=== PATIENT | male | born 1950 | race Caucasian/White ===

== ENCOUNTER 2017-07-28 05:18 | Inpatient (IN) | payer OTHER ==
[2017-07-28] MEDS ORDERED: ceFAZolin 2 GM/SWFI 2 GM/20 ML SYR IVP ONE (06:00)
[2017-07-28] MEDS ORDERED: DEXAMETHASONE 4 MG/ML VIAL IVP ONE (06:00)
[2017-07-28] MEDS ORDERED: ROPIVACAINE 0.2% 80 MG, EPINEPHrine 0.2 MG, KETOROLAC TROMETHAMINE 30 MG in BAG 0 ML IU ONE (06:00)
[2017-07-28] MEDS ORDERED: FAMOTIDINE 20 MG TAB PO ONE (06:00)
[2017-07-28] MEDS ORDERED: ACETAMINOPHEN 325 MG TAB PO ONE (06:00)
[2017-07-28] MEDS ORDERED: LIDOCAINE 1% 2 ML INJ ONE (06:02)
[2017-07-28] MEDS ORDERED: LR 1,000 ML IV ONE (06:08)
[2017-07-28] MEDS ORDERED: LIDOCAINE 1% 2 ML INJ ID PRN (06:08)
[2017-07-28] MEDS ORDERED: PROPOFOL/EMULSION 500 MG/50 ML BOTTLE IV ONE ×2 (06:48→09:00)
[2017-07-28] MEDS ORDERED: fentaNYL 250 MCG/5 ML INJ ONE (06:48)
[2017-07-28] MEDS ORDERED: CALCIUM CHLORIDE 1 GM/10 ML INJ ONE (06:54)
[2017-07-28] MEDS ORDERED: THROMBIN (BOVINE) 5,000 UNIT VIAL TP ONE (06:54)
[2017-07-28] MEDS ORDERED: ceFAZolin 1 GM/5 ML SYR ONE (06:55)
[2017-07-28] MEDS ORDERED: BUPIVACAINE 0.5% 30 ML SDV ONE (07:04)
--- NOTE | 2017-07-28 07:06 | PDHPUP ---
History & Physical Update H&P update statement: This history and physical update is based on an assessment of the patient which was completed after admission or registration (within 24 hours), but prior to the surgery/procedure. H&P update: H&P reviewed & patient examined, no change in patient's condition since H&P completed
[2017-07-28] MEDS ORDERED: MIDAZOLAM 2 MG/2 ML VIAL ONE (07:08)
[2017-07-28] MEDS ORDERED: MIDAZOLAM 2 MG/2 ML VIAL IVP ONE (07:12)
--- NOTE | 2017-07-28 07:12 | PDANEPAE ---
ANE History of Present Illness 67 year old male for Right knee arthroplasty. ANE Past Medical History - Cardiovascular History Hx Hypertension: No Hx Arrhythmias: No Hx Chest Pain: No Hx Coronary Artery / Peripheral Vascular Disease: Yes Hx CHF / Valvular Disease: No Hx Palpitations: No Cardiovascular History Comment: cad. high chol - Pulmonary History Hx COPD: No Hx Asthma/Reactive Airway Disease: No Hx Recent Upper Respiratory Infection: No Hx Oxygen in Use at Home: No Hx Sleep Apnea: No Sleep Apnea Screening Result - Last Documented: Negative Pulmonary History Comment: hx of resp issues when he first moved to [place]- has since resolved - Neurologic History Hx Cerebrovascular Accident: No Hx Seizures: No Hx Dementia: No Neurologic History Comment: hx of cervical fusion - Endocrine History Hx Diabetes: No - Renal History Hx Renal Disorders: No - Liver History Hx Hepatic Disorders: No - Neurological & Psychiatric Hx Hx Neurological and Psychiatric Disorders: Yes Neurological / Psychiatric History Comment: depression - Cancer History Hx Cancer: Yes Cancer History Comment: 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 wears reading glasses. 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 08/03/12 left TKA with Marek. right knee surgery 1964. 13 left knee surgeries before knee replacement. cervical fusion c5,6,7. Right RTC x3. Left Bicep reattached. Modified radical neck disection 2005. appy as child. tonsillectomy as child. hand surgery in 1977 ANE Review of Systems Review of Systems: - Exercise capacity METS (RN): 4 METS ANE Patient History - Allergies Allergies/Adverse Reactions: Penicillins Allergy (Intermediate, Verified 07/07/17 13:57) Hives - Home Medications Home Medications: Fludrocortisone Acetate [Florinef] 0.1 mg PO DAILY 05/21/16 [Last Taken 07/27/17 ] Omeprazole [Prilosec 20 mg] 20 mg PO DAILY 05/21/16 [Last Taken 07/27/17] Simvastatin [Zocor] 40 mg PO DAILY 05/21/16 [Last Taken 07/27/17] buPROPion SR [Wellbutrin 150mg SR (*)] 300 mg PO DAILY 05/21/16 [Last Taken ] Aspirin [Aspirin 81mg (*)] 81 mg PO DAILY 06/30/17 [Last Taken 07/27/17] Herbals/Supplements -Info Only 1 ea PO DAILY 06/30/17 [Last Taken Unknown] METHYLPHENIDATE HCL [Concerta 54 mg] 54 mg PO DAILY 06/30/17 [Last Taken ] - NPO status NPO Since - Liquids (Date): 07/27/17 NPO Since - Liquids (Time): 22:15 NPO Since - Solids (Date): 07/27/17 NPO Since - Solids (Time): 22:15 - Smoking Hx Smoking Status: Never smoked - Family Anes Hx Family Hx Anesthesia Complications: none ANE Labs/Vital Signs - Vital Signs Blood Pressure: 134/85 Heart Rate: 72 Respiratory Rate: 16 O2 Sat (%): 94 Height: 182.88 cm Weight: 68.039 kg ANE Physical Exam - Airway Mallampati Score: Class 2 Mouth exam: dentures - Pulmonary Pulmonary: no respiratory distress - Cardiovascular Cardiovascular: regular rate and rhythym - ASA Status ASA Status: II ANE Anesthesia Plan Anesthesia Plan: spinal Regional Anesthesia: adductor canal FNB
[2017-07-28] MEDS ORDERED: PROMETHAZINE HCL 25 MG/ML INJ IVP PRN ×2 (07:46→09:59)
[2017-07-28] MEDS ORDERED: OXYCODONE/APAP 5/325 TAB PO PRN (07:46)
[2017-07-28] MEDS ORDERED: ACETAMINOPHEN 500 MG TAB PO PRN (07:46)
[2017-07-28] MEDS ORDERED: MEPERIDINE 25 MG/ML SYR IVP PRN (07:46)
[2017-07-28] MEDS ORDERED: HYDROCODONE/APAP 5/325 TAB PO PRN (07:46)
[2017-07-28] MEDS ORDERED: fentaNYL 100 MCG/2 ML INJ IVP PRN (07:46)
[2017-07-28] MEDS ORDERED: ONDANSETRON 4 MG/2 ML VIAL IVP PRN ×2 (07:46→09:59)
[2017-07-28] MEDS ORDERED: ALBUTEROL 3 ML DEYVIAL IH PRN (07:46)
[2017-07-28] MEDS ORDERED: DEXAMETHASONE 4 MG/ML VIAL IVP PRN (07:46)
[2017-07-28] MEDS ORDERED: LABETALOL HCL 50 MG/10 ML SYR IVP PRN (07:46)
[2017-07-28] MEDS ORDERED: HYDROmorphONE/DILAUDID 1 MG/ML INJ IVP PRN (07:46)
[2017-07-28] MEDS ORDERED: LR 500 ML IV PRN (07:46)
[2017-07-28] MEDS ORDERED: NALOXONE HCL 0.4 MG/ML INJ IVP PRN (07:46)
[2017-07-28] MEDS ORDERED: LACTULOSE 20 GM/30 ML UDCUP PO PRN (09:59)
[2017-07-28] MEDS ORDERED: CYCLOBENZAPRINE 10 MG TAB PO PRN (09:59)
[2017-07-28] MEDS ORDERED: DIPHENOXYLATE/ATROPINE LOMOTIL 1 TAB PO PRN (09:59)
[2017-07-28] MEDS ORDERED: POLYETHYLENE GLYCOL 3350 17 GM PKT PO PRN (09:59)
[2017-07-28] MEDS ORDERED: PROMETHAZINE HCL 25 MG SUPPR PR PRN (09:59)
[2017-07-28] MEDS ORDERED: diphenhydrAMINE 25 MG CAP PO PRN (09:59)
[2017-07-28] MEDS ORDERED: ONDANSETRON DISINTEGRATING 4 MG TAB PO PRN (09:59)
[2017-07-28] MEDS ORDERED: BISACODYL 10 MG SUPP PR PRN (09:59)
[2017-07-28] MEDS ORDERED: MAGNESIUM HYDROXIDE 30 ML UDCUP PO PRN (09:59)
[2017-07-28] MEDS ORDERED: LR 1,000 ML IV SCH (10:00)
--- NOTE | 2017-07-28 10:08 | POSTOPPROG ---
Post Op Note Date of Operation: 07/28/17 Surgeon: Whitney Jara Coupon Clerk: Deanna To Anesthesiologist: Dr. Hillary Guardado Anesthesia: Spinal Pre-op Diagnosis: right knee osteoarthritis Post-op Diagnosis: right knee osteoarthritis Indication: right knee pain Procedure: right TKA Inf/Abcess present in the surg proc area at time of surgery?: No EBL: Minimal Complications: none
--- NOTE | 2017-07-28 10:10 | SOAPPROG ---
SOAP Progress Note Assessment/Plan: Assessment/Plan: 66y/o male s/p right TKA - orders as written - post-op xrays pending - PT/OT - anticipate discharge tomorrow pending clinical course - call with issues or concerns 07/28/17 10:08 Subjective: No pain, doing well Objective: Vital Signs Temp Pulse Resp BP Pulse Ox 36.5 C 72 11 L 114/77 96 07/28/17 09:50 07/28/17 07:12 07/28/17 10:01 07/28/17 10:01 07/28/17 10:01 NAD, well appearing, no distress EOMi, face symmetric MAEx4 incision clean, dressed ICD10 Worksheet Patient Problems: Problems Problem Status Onset Chest pain Acute
--- NOTE | 2017-07-28 12:07 | POSTANESTH ---
Post Anesthetic Evaluation Respiratory Status: Normal, Stable Level of Consciousness/Mental Status: Can Participate in Eval Pain Control: Adequate, Prn Tx Ordered Nausea/Vomiting Control: Adequate, Prn Tx Ordered Complications Possibly Related to Anesthesia: None Noted (Adductor Canal block done in PACU for post-op pain control at the request of Dr. Jara. Right adductor canal. Skin prep/drape with chloroprep. 20 guage Touhy advanced with ultrasound guidance. Identification of adductor canal adjacent to femoral artery. Ultrasound image in patient's chart. Neg aspiration. Medication given Bupivicaine .5% 20 cc in 5 cc increments. No complications.)
[2017-07-28] MEDS: ACETAMINOPHEN 325 MG TAB PO SCH ×3 (13:15→23:55)
[2017-07-28] MEDS: oxyCODONE IR 5 MG TAB PO PRN ×3 (13:15→22:13)
[2017-07-28] MEDS: buPROPion SR 150 MG TAB PO SCH (13:16)
[2017-07-28] MEDS ORDERED: ceFAZolin 2 GM/DEXTROSE 100 ML IV SCH (14:00)
--- NOTE | 2017-07-28 14:15 | GOP ---
[f rep st] OPERATIVE REPORT DATE OF OPERATION: 07/28/2017 SURGEON: Whitney Jara MD LABEL SEWER: Deanna To, PAC. ANESTHESIA: General spinal with adductor canal block. PREOPERATIVE DIAGNOSIS: Severe osteoarthritis, right knee. POSTOPERATIVE DIAGNOSIS: Severe osteoarthritis, right knee. PROCEDURE PERFORMED: Right total knee arthroplasty. FINDINGS: Preoperative x-rays of the patient's right knee demonstrated osteoarthritis, most pronounc ed in the medial compartment. At the time of surgery, this finding was confirmed. The patient had c omplete loss of the articular cartilage on the weightbearing portion of the medial femoral condyle an d tibial plateau. There was moderate degenerative change in the patellofemoral and lateral compartme nts. A [employer] cemented Journey II total knee arthroplasty was performed. The size 8 femor al component was cemented into place, and a size 7 tibial base plate was utilized. This was also radha ented into place. 10 mm cross-linked polyethylene insert was placed in the metal backing of the tibi a. A 41 mm round patellar component was cemented. Following implantation of the components, the kne e was taken through range of motion and achieved full extension, as well as 135 degrees of flexion. The patella tracked well in the trochlear groove. The knee was stable to varus and valgus stressing, both in extension and 30 degrees of flexion. The flexion and extension gaps were symmetrical. ESTIMATED BLOOD LOSS: Minimal. DESCRIPTION OF PROCEDURE: PROCEDURE: The patient was taken the operating room, placed in supine position on the operating tabl e. Following induction of adequate spinal anesthesia, the knee and leg were prepped and draped in th e usual sterile manner. The patient received 2 g of IV Ancef. The leg was elevated and exsanguinate d, and the tourniquet inflated to 275 mmHg. The [facility] leg burns was used throughout the procedure for positioning. A midline incision was made, extending from 2 fingerbreadths superior to the super ior pole of the patella distally to the tibial tubercle. Incision was carried down through the subcu taneous tissue to the retinaculum of the knee. A medial parapatellar arthrotomy was then performed. The patella was everted laterally, and the patellar thickness was measured. A 9 mm cut was taken fr om the posterior patella. The patella was then sized, and a metal plate was placed on the cut surfac e of the patella to protect it. It was placed in the lateral gutter. The knee was flexed up, and th e distal femoral drill hole was made. The distal femoral cutting block was positioned on the distal femur, and then a +2 cut was taken from the distal femur. The femur was then sized, and an 8 femoral component was felt to be the best fit. The 8 cutting block was placed on the distal femur and pinne d. The anterior, posterior, and chamfer cuts were made. The cutting block was removed, and the 8 tr ial was placed on the distal femur. The notch was cleared with the reamer, followed by the box osteo tome. The femoral component was then removed, and our attention was turned to the tibia. The crucia te ligaments were debrided from the notch, and then intramedullary referencing was used for the tibia l cut as well. A drill hole was placed in the proximal tibia in the midline, and then the intramedul veronica guide was inserted and the tibial cutting block was positioned and pinned. The tibial cut was m bimal. The medial and lateral meniscus were excised. The 9 mm thick lollipop spacer was then placed i n flexion and extension to confirm appropriate flexion-extension gaps. The lollipop was removed, and the tibia was sized. The size 7 tibial component was chosen. It was then pinned into place, and a trial reduction was performed with the femoral component on the distal femur. The 9 and 10 mm thick polyethylenes were used for trial reduction, and the best fit was with the 10 mm polyethylene. The t rial components were removed, except for the tibial base plate, and then the keel punch was utilized. The remainder of the trial components were removed, and the patella was drilled. Then the bony sergio faces were thoroughly irrigated and dried, and the cement was mixed. The tibial component was cement ed into place first, followed by the femoral component and the patellar component. Excess cement was removed from around the edges of the components. Once the cement was hard, the trial polyethylene w as removed and the 10 mm cross-linked polyethylene insert was inserted without difficulty. The wound was thoroughly irrigated out. The posterior capsule was injected with joint cocktail, and then the retinaculum of the knee was closed using #2 FiberWire in a [id number] fashion, the subcutaneous tissues were closed using 2-0 Vicryl, and the skin was closed using kenneth. Sterile dressings were applied. Platelet gel was used in the deep and superficial portions of the wound to enhance wound he aling. The patient was transported to the recovery room in good condition. /[id number]/MODL
[2017-07-28] MEDS: ceFAZolin 2 GM in D5W 100 ML IV SCH ×2 (16:08→22:13)
[2017-07-28] MEDS: SENNOSIDES/DOCUSATE SODIUM TAB PO SCH (22:13)
[2017-07-29] MEDS: oxyCODONE IR 5 MG TAB PO PRN ×3 (01:02→11:55)
[2017-07-29] MEDS: ACETAMINOPHEN 325 MG TAB PO SCH ×2 (04:22→11:55)
[2017-07-29 05:31] LABS: HEMATOCRIT 28.5 % (40.0-51.0); HEMOGLOBIN 9.8 g/dL (13.7-17.5)
[2017-07-29] MEDS ORDERED: METHYLPHENIDATE HCL 54 MG PO SCH (09:00)
[2017-07-29] MEDS ORDERED: NON-FORMULARY NEW DRUG (Simvastatin [Zocor] 40 MG) PO SCH (09:00)
[2017-07-29] MEDS ORDERED: NON-FORMULARY NEW DRUG (Omeprazole [Prilosec 20 Mg] 20 MG) PO SCH (09:00)
[2017-07-29] MEDS ORDERED: FERROUS SULFATE 140 MG TAB.ER PO SCH (09:00)
[2017-07-29] MEDS ORDERED: ASPIRIN 325 MG TAB PO SCH (09:00)
[2017-07-29] MEDS ORDERED: ATORVASTATIN CALCIUM 20 MG TAB PO SCH (09:00)
[2017-07-29] MEDS ORDERED: PANTOPRAZOLE SODIUM 40 MG TAB PO SCH (09:00)
[2017-07-29] MEDS ORDERED: FLUDROCORTISONE ACETATE 0.1 MG TAB PO SCH (09:00)
[2017-07-29] MEDS: SENNOSIDES/DOCUSATE SODIUM TAB PO SCH (09:36)
[2017-07-29] MEDS: buPROPion SR 150 MG TAB PO SCH (09:36)
--- NOTE | 2017-07-29 10:39 | ASMTCMCOM ---
CM Note CM Note Notes: Spoke with RN and PT: patient is safe to discharge home with family support and outpatient PT follow-up. He concurs with this plan. CM available if his needs change. Date Signed: 07/29/2017 10:38 AM Electronically Signed By:Rupa Treviño RN
[2017-07-29] MEDS ORDERED: ASPIRIN 81 MG CHEWABLE TAB PO SCH (12:00)
[2017-07-29 12:05] VITALS: BP 117/74; PULSE 69; RESP 18; TEMP 98.3; O2SAT 98
--- NOTE | 2017-07-29 14:12 | SOAPPROG ---
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 Walking well, stairs went well. Eating, drinking, voiding, no BM yet. Objective: Vital Signs Temp Pulse Resp BP Pulse Ox 36.8 C 69 18 117/74 98 07/29/17 12:00 07/29/17 12:00 07/29/17 12:00 07/29/17 12:00 07/29/17 12:00 Laboratory Results 07/29/17 04:50 07/28/17 07/29/17 07/30/17 05:59 05:59 05:59 Intake Total 3875 360 Output Total 1920 Balance 1955 360 NAD, well appearing, no distress EOMi, face symmetric knee extension near 0 knee flexion 90 incision CDI, no erythema or active drainage; new dressing placed ICD10 Worksheet Patient Problems: Problems Problem Status Onset Chest pain Acute
--- NOTE | 2017-07-29 14:18 | PDIAF ---
- Diagnosis Diagnosis: right TKA Code Status: Full Code - Medication Management Discharge Medications: Medications to Continue on Transfer Fludrocortisone Acetate [Florinef] 0.1 mg PO DAILY 05/21/16 [Last Taken 07/27/17 ] Omeprazole [Prilosec 20 mg] 20 mg PO DAILY 05/21/16 [Last Taken 07/27/17] Simvastatin [Zocor] 40 mg PO DAILY 05/21/16 [Last Taken 07/27/17] buPROPion SR [Wellbutrin 150mg SR (*)] 300 mg PO DAILY 05/21/16 [Last Taken ] Herbals/Supplements -Info Only 1 ea PO DAILY 06/30/17 [Last Taken Unknown] METHYLPHENIDATE HCL [Concerta 54 mg] 54 mg PO DAILY 06/30/17 [Last Taken ] Acetaminophen [Tylenol 325mg (*)] 650 mg PO Q6HRS tab 07/29/17 [Last Taken Unknown] Aspirin [Aspirin 81mg (*)] 81 mg PO DAILY tab.chew 07/29/17 [Last Taken Unknown ] Ferrous Sulfate [Slow Fe 140 MG (*)] 140 mg PO DAILY tab.er 07/29/17 [Last Taken Unknown] oxyCODONE IR [Oxycodone Ir (*)] 5 - 15 mg PO Q3HRS PRN tab 07/29/17 [Last Taken Unknown] Discharge Medications: Refer to the Discharge Home Medication list for PRN reason. - Orders Services needed: Home Care, Physical Therapy, Occupational Therapy Home Care Face to Face: I certify that this patient was under my care and that I had the required [id number] encounter meeting the encounter requirements on the discharge day. My findings support the fact that the patient is homebound as defined in Home Care Face to Face Continued: CMS Chapter 7 Medicare Benefits Manual 30.1.1 , The condition of the patient is such that there exists a normal inability to leave home and consequently, leaving home would require a considerable and taxing effort. Diet Recommendation: no restrictions on diet Reginaldo Stockings Discontinue Date: active care system Wound Care Instructions: keep incision clean and dry Sutures/Radha Site: will remove at post-op visit Activity/Weight Bearing Restrictions: weight bearing as tolerated - Follow Up Care Current Providers and Referrals: Kim Gabriel MD [Primary Care Provider] -
--- NOTE | 2017-07-29 16:43 | ASDISCHSUM ---
Discharge Information Plan Status:Home with No Needs Medically Cleared to Leave: Discharge Date:07/29/2017 04:38 PM CM D/C Disposition:Home, Routine, Self-Care ADT D/C Disposition:[id number] Projected Discharge Date:07/29/2017 04:38 PM Transportation at D/C:Family Discharge Delay Reason: Follow-Up Date:07/29/2017 04:38 PM Discharge Slot: Final Diagnosis: Placement Information Patient Contact Information Contact Name:BEA Relationship: Address:[address] [place]:[facility] Phone: [facility]/Zip Code:[place] [address] Email: Financial Information Financial Class:HMO and PPO Plans Primary Plan Desc:[employer] Primary Plan Number:[id number] Secondary Plan Desc:MEDICARE INPATIENT Secondary Plan Number:[id number] Assessment Information BC CM Progress Note CM Note CM Note Notes: Spoke with RN and PT: patient is safe to discharge home with family support and outpatient PT follow-up. He concurs with this plan. CM available if his needs change. Date Signed: 07/29/2017 10:38 AM Electronically Signed By:Rupa Treviño RN Intervention Information
== END 2017-07-29 16:38 | disposition home health service (06) | DRG 470 ==
LOC: F3N 05:18
PROVIDERS: ADMIT Orthopaedic Surgery; ATTEND Orthopaedic Surgery
PROC: 0SRC0J9 Replacement of Right Knee Joint with Synthetic Substitute, Cemented, Open Approach (ICD-10-PCS; principal; 2017-07-28 07:15)
DX: M17.11 Unilateral primary osteoarthritis, right knee (principal); I25.10 Atherosclerotic heart disease of native coronary artery without angina pectoris; E78.00 Pure hypercholesterolemia, unspecified; Z85.820 Personal history of malignant melanoma of skin; Z96.652 Presence of left artificial knee joint; Z98.1 Arthrodesis status
CPT/HCPCS: 97110-GP; 97116-GP; 97161-GP; 97165-GO; 97530-GP; C1713; G8978-GP-CI; G8979-GP-CI; G8980-GP-CI; G8987-GO-CI; G8988-GO-CI; G8989-GO-CI; J0171; J0690; J1100; J1885; J2250; J2704; J2795; J3010

== ENCOUNTER → 2017-11-28 | Outpatient (CLI) | payer OTHER | LOC: FIMAGING 08:28 | PROVIDERS: ATTEND Internal Medicine Infectious Disease | DX: Z96.5 Presence of tooth-root and mandibular implants (principal) ==